=== PATIENT | female | born 1960 | race Hispanic/Latino ===

== ENCOUNTER 2016-05-21 07:49 | Outpatient (CLI) | payer OTHER ==
--- NOTE | 2016-05-21 09:23 | Mammography Report ---
BILATERAL DIGITAL SCREENING MAMMOGRAM with CAD: 05/21/16 07:49:00 CLINICAL: Routine screening. COMPARISON:05/06/15 FINDINGS: The breasts are almost entirely fatty. No mass, architectural distortion or suspicious calcifications. IMPRESSION: No mammographic evidence of malignancy. BI-RADS CATEGORY: 1 - - Negative RECOMMENDATION: Routine mammographic screening in one year. COMMENT: Patient follow-up letters are generated by our [employer] application.
== END 2016-05-21 07:50 | disposition home or self-care (01) ==
LOC: MAMMO 07:49
PROVIDERS: ATTEND Internal Medicine
DX: Z12.31 Encounter for screening mammogram for malignant neoplasm of breast (principal)
CPT/HCPCS: 77067; G0202

== ENCOUNTER 2017-06-24 08:07 | Outpatient (CLI) | payer OTHER ==
--- NOTE | 2017-06-24 13:05 | Mammography Report ---
BILATERAL DIGITAL SCREENING MAMMOGRAM with CAD: 06/24/17 08:07:00 CLINICAL: Routine screening. COMPARISON:05/21/16 and 05/06/15 FINDINGS: The breasts are almost entirely fatty. No mass, architectural distortion or suspicious calcifications. IMPRESSION: No mammographic evidence of malignancy. BI-RADS CATEGORY: 1 - - Negative RECOMMENDATION: Routine mammographic screening in one year. COMMENT: Patient follow-up letters are generated by our [employer] application.
--- NOTE | 2017-06-24 15:01 | Ultrasound Report ---
ABDOMINAL ULTRASOUND: 06/24/17 08:07:00 CLINICAL: Fatty liver. FINDINGS: High-resolution ultrasound demonstrated an enlarged diffusely echogenic liver with attenuation of the sound and suboptimal imaging of portions of the liver. No liver mass identified. Small caliber hepatic veins and portal veins. Normal bile ducts status post cholecystectomy. The common bile duct measures 5.0 mm diameter. Normal pancreatic head and proximal body. The distal body and tail were not imaged due to bowel gas and body habitus. The spleen is borderline enlarged and measures 11.7 x 6.0 x 5.5 cm. Normal kidneys with normal echogenicity and normal non-dilated renal collecting systems and ureters. The right kidney measures 10.6 x 5.3 x 5.2cm. The left kidney measures 13.6 x 6.2 x 5.1cm. No renal mass or calculus. The proximal abdominal aorta measures 2.2 cm. The distal aorta was not imaged due to bowel gas. No ascites or mass. IMPRESSION: 1. Hepatic steatosis and hepatomegaly. 2. Normal bile ducts status post cholecystectomy. 3. Limited imaging of the pancreas but no signs of acute or chronic pancreatitis. 4. Normal kidneys. 5. Borderline splenomegaly.
== END 2017-06-24 08:08 | disposition home or self-care (01) ==
LOC: SPVWC 08:07
PROVIDERS: ATTEND Internal Medicine
DX: Z12.31 Encounter for screening mammogram for malignant neoplasm of breast (principal); K76.0 Fatty (change of) liver, not elsewhere classified; Z90.49 Acquired absence of other specified parts of digestive tract
CPT/HCPCS: 76700; 77067

== ENCOUNTER 2018-07-26 07:05 | Outpatient (CLI) | payer OTHER ==
--- NOTE | 2018-07-26 09:20 | Ultrasound Report ---
ULTRASOUND ABDOMEN COMPLETE: TECHNIQUE: Transabdominal ultrasound with color Doppler interrogation. HISTORY: K76.0, fatty liver. COMPARISON: 06/24/17. FINDINGS: LIVER: The liver remains mildly enlarged with mild diffuse fatty infiltration. No focal liver mass is identified. BILIARY SYSTEM: Cholecystectomy. The CBD measures 6.1 mm. PANCREAS: Normal. SPLEEN: There is mild to moderate splenomegaly measuring up to 15.2 x 4.9 x 6.0 cm. KIDNEYS: Normal. AORTA/IVC: Normal. ASCITES: None. IMPRESSION: Mild hepatomegaly with diffuse fatty infiltration. Splenomegaly. No significant change since 06/24/17.
--- NOTE | 2018-07-26 09:22 | Ultrasound Report ---
ULTRASOUND THYROID SCAN History: Thyroid cancer. Findings: Grayscale imaging of the thyroid bed was performed. No convincing thyroid tissue, suspicious mass mass or adenopathy is identified on ultrasound. This may represent thyroidectomy. The remaining cervical soft tissues are unremarkable. Impression: No thyroid tissue is demonstrated in the thyroid bed.
--- NOTE | 2018-07-27 07:54 | Mammography Report ---
Bilateral mammogram: Compared to prior study of 05/09 and 05/21/16.. CAD study utilized. Findings: Predominantly adipose tissue bilaterally benign density right breast. Normal axilla. No microcalcification. Impression: Benign findings.
== END 2018-07-26 07:06 | disposition home or self-care (01) ==
LOC: MAMMO 07:05
PROVIDERS: ATTEND Internal Medicine
DX: Z12.31 Encounter for screening mammogram for malignant neoplasm of breast (principal); K76.0 Fatty (change of) liver, not elsewhere classified; R16.2 Hepatomegaly with splenomegaly, not elsewhere classified; Z85.850 Personal history of malignant neoplasm of thyroid
CPT/HCPCS: 76536; 76700; 77067

== ENCOUNTER 2019-08-10 08:21 | Outpatient (CLI) | payer BC, OTHER ==
--- NOTE | 2019-08-10 09:37 | Mammography Report ---
DIGITAL SCREENING MAMMOGRAM WITH CAD, 08/10/2019 INDICATION: Routine screening mammography. TECHNIQUE: Digital bilateral 2D mammography was obtained in the craniocaudal and mediolateral obliq ue projections. This examination was interpreted with the benefit of Computer-Aided Detection analysi s. COMPARISON: 07/26/2018. FINDINGS: Breast Density: The breasts are almost entirely fatty. There is no evidence of dominant mass, suspicious calcifications or architectural distortion in eithe r breast. IMPRESSION: Follow up recommendation: Routine yearly BI-RADS Category 1: Negative. A "normal" or negative report should not discourage follow up or biopsy of a clinically significant f inding. A written summary of these findings will be mailed to the patient. The patient will be entered into a mammography reporting system which will generate a reminder letter for the patient's next appointmen t at the appropriate interval. The [employer] recommends yearly mammograms starting at age 40 and continuing as l reshma as a woman is in good health. Breast MRI is recommended for women with an approximate 20-25% or greater lifetime risk of breast cancer, including women with a strong family history of breast or ova jose cancer or who have been treated for Hodgkin's disease. Signer Name: Isaac Schumacher MD Signed: 08/10/2019 9:32 AM Workstation Name: [id number]
== END 2019-08-10 08:22 | disposition home or self-care (01) ==
LOC: SPVWC 08:21
PROVIDERS: ATTEND Internal Medicine
DX: Z12.31 Encounter for screening mammogram for malignant neoplasm of breast (principal)
CPT/HCPCS: 77067

== ENCOUNTER 2020-09-25 08:48 | Outpatient (CLI) | payer BC ==
--- NOTE | 2020-09-25 09:51 | Ultrasound Report ---
ULTRASOUND ABDOMEN, COMPLETE INDICATION / CLINICAL INFORMATION: FATTY CHANGE OF LIVER/UNSPECIFIED CIRRHOSIS OF LIVER. COMPARISON: None available. FINDINGS: PANCREAS: No significant abnormality. ABDOMINAL AORTA: No significant abnormality. IVC: No significant abnormality. LIVER: Mild increased echogenicity without focal lesion. GALLBLADDER: Surgically absent BILE DUCTS: No significant abnormality. Common bile duct measures 3 mm. KIDNEYS: Right: No significant abnormality. Left: No significant abnormality. SPLEEN: No significant abnormality. FREE FLUID: None. ADDITIONAL FINDINGS: None. IMPRESSION: 1. Mild hepatic steatosis. 2. Status post cholecystectomy. Signer Name: Fabio Iniguez DO Signed: 09/25/2020 9:46 AM Workstation Name: [id number]
--- NOTE | 2020-09-25 15:08 | Mammography Report ---
DIGITAL SCREENING MAMMOGRAM WITH CAD, 09/25/2020 CLINICAL INFORMATION / INDICATION: Routine screening mammography. SCREENING MAMMO TECHNIQUE: Digital bilateral 2D mammography was obtained in the craniocaudal and mediolateral obliqu e projections. This examination was interpreted with the benefit of Computer-Aided Detection analysis . COMPARISON: 04/11/12 through 08/10/19. FINDINGS: Breast Density: The breasts are almost entirely fatty. No dominant mass, suspicious calcifications, or architectural distortion in either breast. Minimal benign-appearing nodularity in the right lower inner quadrant is stable. No new abnormality i s seen. IMPRESSION: No mammographic evidence of malignancy. Follow up recommendation: Routine yearly BI-RADS Category 2: Benign. A "normal" or negative report should not discourage follow up or biopsy of a clinically significant f inding. A written summary of these findings will be mailed to the patient. The patient will be entered into a mammography reporting system which will generate a reminder letter for the patient's next appointmen t at the appropriate interval. The [employer] recommends yearly mammograms starting at age 40 and continuing as l reshma as a woman is in good health. Breast MRI is recommended for women with an approximate 20-25% or greater lifetime risk of breast cancer, including women with a strong family history of breast or ova jose cancer or who have been treated for Hodgkin's disease. Signer Name: Kike Abreu MD Signed: 09/25/2020 3:03 PM Workstation Name: [id number]
== END 2020-09-25 08:49 | disposition home or self-care (01) ==
LOC: SPVWC 08:48
PROVIDERS: ATTEND Internal Medicine
DX: Z12.31 Encounter for screening mammogram for malignant neoplasm of breast (principal); K76.0 Fatty (change of) liver, not elsewhere classified; K74.60 Unspecified cirrhosis of liver; Z90.49 Acquired absence of other specified parts of digestive tract
CPT/HCPCS: 76700; 77067